=== PATIENT | female | born 1955 | race Two or more races ===

== ENCOUNTER 2017-09-03 14:14 | Emergency (ER) | payer OTHER ==
[2017-09-03 14:32] VITALS: TEMP 98.7; BMI 36.1
[2017-09-03] MEDS ORDERED: ACETAMINOPHEN 1000 MG/100 ML VIAL (NON FORMULARY) IVPB ONE (14:45)
[2017-09-03] MEDS ORDERED: METOCLOPRAMIDE HCL INJECTION 10 MG/2 ML VIAL IVPUSH ONE (14:45)
[2017-09-03] MEDS ORDERED: SODIUM CHLORIDE 1,000 ML IV STA (14:45)
[2017-09-03] MEDS ORDERED: ACETAMINOPHEN INJECTION 100 ML IVPB ONE (14:50)
--- NOTE | 2017-09-03 15:01 | PDOC ---
History of Present Illness - History of Present Illness Initial Comments: 09/03/17 15:30 The patient is a 62 year old female, with a significant PMH diabetes mellitus and migraines, who presents to the emergency department with progressively worsening posterior headache beginning this morning. The patient reports she has a history of intermittent headaches from her migraines which begin at night , worsen in the morning and resolve during the course of the day with Aleve and Excedrin. The patient states her headache today is similar to her headaches from her migraines but has not yet resolved which prompted the ED visit. The patient states she tried taking Excedrin and 2 Aleve with minimal relief. The patient also endorses slight photophobia and states her headache is made worse with sound. The patient denies chest pain, shortness of breath, and dizziness. Denies fever, chills, nausea, vomit, diarrhea and constipation. Denies dysuria, frequency, urgency and hematuria. Allergies: NKA <Fox Page - Last Filed: 09/03/17 15:43> - General History Source: Patient, Family Exam Limitations: No Limitations <Willian Knight - Last Filed: 09/03/17 15:58> - General Chief Complaint: Pain Stated Complaint: HEADACHE Time Seen by Provider: 09/03/17 14:22 Past History <Fox Page - Last Filed: 09/03/17 15:43> - Past Medical History COPD: No Diabetes: Yes Hypercholesterolemia: Yes Kidney Stones: Yes - Suicide/Smoking/Psychosocial Hx Smoking History: Never smoked Have you smoked in the past 12 months: No Information on smoking cessation initiated: No Substance Use Type: None <Willian Knight - Last Filed: 09/03/17 15:58> - Past Medical History Allergies/Adverse Reactions: Allergies Allergy/AdvReac Type Severity Reaction Status Date / Time No Known Allergies Allergy Unverified 09/03/17 14:17 Home Medications: Ambulatory Orders Insulin Glargine,Hum.rec.anlog [Lantus] 30 unit SQ HS 09/03/17 Metformin HCl [Metformin HCl ER] 1,000 mg PO DAILY 09/03/17 Metoclopramide HCl [Reglan] 10 mg PO Q6H PRN #15 tablet 09/03/17 Valsartan [Diovan] 40 mg PO DAILY 09/03/17 Review of Systems - Review of Systems Comments:: 09/03/17 15:31 GENERAL/CONSTITUTIONAL: No fever or chills. No weakness. HEAD, EYES, EARS, NOSE AND THROAT: No change in vision. No ear pain or discharge. No sore throat. CARDIOVASCULAR: No chest pain or shortness of breath. RESPIRATORY: No cough, wheezing, or hemoptysis. GASTROINTESTINAL: No nausea, vomiting, diarrhea or constipation. GENITOURINARY: No dysuria, frequency, or change in urination. MUSCULOSKELETAL: No joint or muscle swelling or pain. No neck or back pain. SKIN: No rash NEUROLOGIC: +Posterior headache. No vertigo, loss of consciousness, or change in strength/sensation. ENDOCRINE: No increased thirst. No abnormal weight change. HEMATOLOGIC/LYMPHATIC: No anemia, easy bleeding, or history of blood clots. ALLERGIC/IMMUNOLOGIC: No hives or skin allergy. <Fox Page - Last Filed: 09/03/17 15:43> *Physical Exam - Vital Signs Last Vital Signs Temp Pulse Resp BP Pulse Ox 98.7 F 71 16 154/87 98 09/03/17 14:15 09/03/17 14:15 09/03/17 14:15 09/03/17 14:15 09/03/17 14:15 - Physical Exam Comments: 09/03/17 15:31 GENERAL: Obese. Awake, alert, and fully oriented, in no acute distress HEAD: No signs of trauma EYES: PERRLA, EOMI, sclera anicteric, conjunctiva clear ENT: Auricles normal inspection, hearing grossly normal, nares patent, oropharynx clear without exudates. Moist mucosa NECK: Normal ROM, supple, no lymphadenopathy, JVD, or masses LUNGS: Breath sounds equal, clear to auscultation bilaterally. No wheezes, and no crackles HEART: Regular rate and rhythm, normal S1 and S2, no murmurs, rubs or gallops EXTREMITIES: Normal range of motion, no edema. No clubbing or cyanosis. No cords, erythema, or tenderness NEUROLOGICAL: Alert, awake, appropriate. Cranial nerves 2-12 intact. No deficits to light touch and temperature in face, upper extremities and lower extremities. No motor deficits in the in face, upper extremities and lower extremities. Normoreflexic in the upper and lower extremities. Normal speech. Toes are down-going bilaterally. Gait is normal without ataxia. SKIN: Warm, Dry, normal turgor, no rashes or lesions noted. <Fox Page - Last Filed: 09/03/17 15:43> - Vital Signs Last Vital Signs Temp Pulse Resp BP Pulse Ox 98.7 F 71 16 154/87 98 09/03/17 14:15 09/03/17 14:15 09/03/17 14:15 09/03/17 14:15 09/03/17 14:15 <Willian Knight - Last Filed: 09/03/17 15:58> ED Treatment Course - Medications Given in the ED: ED Medications Discontinued Medications Generic Name Dose Route Start Last Admin Trade Name Freq PRN Reason Stop Dose Admin Acetaminophen 1,000 mg 09/03/17 14:45 09/03/17 15:15 Ofirmev Injection - IVPB 09/03/17 14:46 1,000 mg ONCE ONE Administration Diphenhydramine HCl 25 mg 09/03/17 14:45 09/03/17 15:09 Benadryl Injection - IVPB 09/03/17 14:46 25 mg ONCE ONE Administration Metoclopramide HCl 10 mg 09/03/17 14:45 09/03/17 15:05 Reglan Injection - IVPUSH 09/03/17 14:46 10 mg ONCE ONE Administration <Fox Page - Last Filed: 09/03/17 15:43> Medical Decision Making - Medical Decision Making 09/03/17 14:55 A portion of this note was documented by scribe services under my direction. I have reviewed the details of the note, within reason, and agree with the documentation with the following case summary and management plan written by me. Patient treated in the ED. Nursing notes are reviewed and incorporated into the medical decision-making. Vital signs reviewed. Peripheral IV access obtained by the nurse, laboratory studies are drawn and sent, reviewed and interpreted by myself. Vital Signs Temp Pulse Resp BP Pulse Ox 98.7 F 71 16 154/87 98 09/03/17 14:15 09/03/17 14:15 09/03/17 14:15 09/03/17 14:15 09/03/17 14:15 62-year-old female with past medical history of migraines and diabetes presents with headache since this morning. The patient reports intermittent headaches from her migraines. Stated she has an occipitall headache that is intermittent and associated with photophobia and phonophobia. Reports that this is consistent with her prior migraine headaches. Denies fevers or chills or neck stiffness. She had taken her usual Excedrin and Aleve as morning. She reports that this typically helps with headache but today it did not. She is accompanied by her family to the ER. I suspect this is her migraine headache. We'll attempt to control her migraines and reassess. 09/03/17 15:55 Pt given IV reglan, tylenol and benadryl with significant relief in headache. The patient would like to go home. Discharge diagnosis: migraine I discussed the physical exam findings, ancillary test results and final diagnoses with the patient. I answered all of the patient's questions. The patient was satisfied with the care received and felt comfortable with the discharge plan and treatment plan. The patient will call their primary care physician within 24 hours to arrange follow-up and will return to the Emergency Department with any new, persistant or worsening symptoms. <Willian Knight - Last Filed: 09/03/17 15:58> *DC/Admit/Observation/Transfer - Attestations Scribe Attestion: 09/03/17 15:43 Documentation prepared by Fox Page, acting as regional medical director for Willian Knight MD. <Fox Page - Last Filed: 09/03/17 15:43> - Discharge Dispostion Admit: No <Willian Knight - Last Filed: 09/03/17 15:58> Diagnosis at time of Disposition: Migraine Qualifiers: Migraine type: unspecified Status migrainosus presence: without status migrainosus Intractability: not intractable Qualified Code(s): G43.909 - Migraine, unspecified, not intractable, without status migrainosus - Discharge Dispostion Disposition: HOME Condition at time of disposition: Improved - Prescriptions Prescriptions: Metoclopramide HCl [Reglan] 10 mg PO Q6H PRN #15 tablet PRN Reason: Nausea/Headache - Patient Instructions Printed Discharge Instructions: DI for Migraine Additional Instructions: You have received Tylenol, Reglan, Benadryl for your headache. Please drink plenty of fluids and rest. If you have any persistent headaches, you may continue to take your home Excedrin and Aleve as directed on the bottle. For additional relief, you may also take 650 mg of Tylenol every 4 hours as needed as well as 10 mg of Reglan every 6 hours as needed. If your headache is uncontrollable, return to the ER for further evaluation. Otherwise, call and schedule an appointment with your doctor.
[2017-09-03 16:02] VITALS: BP 123/63; PULSE 68
== END 2017-09-03 16:06 | disposition home or self-care (01) ==
LOC: FER 14:14
PROC: 3E033NZ Introduction of Analgesics, Hypnotics, Sedatives into Peripheral Vein, Percutaneous Approach (ICD-10-PCS; principal; 2017-09-03)
PROC: 3E033GC Introduction of Other Therapeutic Substance into Peripheral Vein, Percutaneous Approach (ICD-10-PCS; 2017-09-03)
PROC: 3E0337Z Introduction of Electrolytic and Water Balance Substance into Peripheral Vein, Percutaneous Approach (ICD-10-PCS; 2017-09-03)
DX: G43.909 Migraine, unspecified, not intractable, without status migrainosus (principal); E11.9 Type 2 diabetes mellitus without complications; E78.00 Pure hypercholesterolemia, unspecified
CPT/HCPCS: 99282-25; J0131; J7030